=== PATIENT | female | born 1985 | race American Indian/Alaskan Native ===

== ENCOUNTER 2017-09-12 15:37 | Emergency (ER) | payer OTHER ==
[2017-09-12 15:50] VITALS: BP 114/71
--- NOTE | 2017-09-12 18:33 | Emergency Department Report ---
ED Headache HPI - General Chief Complaint: Headache Stated Complaint: HEADACHE/ABDOMINAL PAIN Time Seen by Provider: 09/12/17 18:01 - History of Present Illness Initial Comments: Patient is a 32-year-old female past history of migraines who is presenting with 2-3 days of a headache patient states this is mild but she does have slight sensitivity is mild nausea. Patient is new to [place] and does not have primary care physician at this time. Patient normally takes Imitrex but has not had her Imitrex and approximately 1 month. Patient has no signs or symptoms at this time Modifying Factors: improves with: exposure to light Associated Symptoms: denies: facial pain, fever/chills, loss of consciousness, nasal congestion, nasal drainage, numbness in legs/feet, seizures, sinus infection, stiff neck, vision changes, weakness Allergies/Adverse Reactions: Allergies No Known Allergies Allergy (Verified 09/12/17 15:44) Home Medications: Ambulatory Orders SUMAtriptan SUCCINATE [Imitrex] 4 mg SQ PRN #6 ml 09/12/17 ED Review of Systems ROS: Stated complaint: HEADACHE/ABDOMINAL PAIN Other details as noted in HPI Comment: All other systems reviewed and negative ED Past Medical Hx - Past Medical History Previous Medical History?: Yes Additional medical history: migraines - Surgical History Past Surgical History?: Yes Additional Surgical History: rotator cuff - Social History Smoking Status: Never Smoker Substance Use Type: None - Medications Home Medications: Home Medications Medication Instructions Recorded Confirmed Last Taken Type SUMAtriptan SUCCINATE [Imitrex] 4 mg SQ PRN #6 ml 09/12/17 Unknown Rx ED Physical Exam - General Limitations: No Limitations General appearance: alert, in no apparent distress - Head Head exam: Present: atraumatic, normocephalic - Eye Eye exam: Present: normal appearance - ENT ENT exam: Present: mucous membranes moist - Neck Neck exam: Present: normal inspection - Respiratory Respiratory exam: Present: normal lung sounds bilaterally. Absent: respiratory distress - Cardiovascular Cardiovascular Exam: Present: regular rate, normal rhythm. Absent: systolic murmur, diastolic murmur, rubs, gallop - GI/Abdominal GI/Abdominal exam: Present: soft, normal bowel sounds - Extremities Exam Extremities exam: Present: normal inspection - Back Exam Back exam: Present: normal inspection - Neurological Exam Neurological exam: Present: alert, oriented X3 - Psychiatric Psychiatric exam: Present: normal affect, normal mood - Skin Skin exam: Present: warm, dry, intact, normal color. Absent: rash ED Course Vital Signs 09/12/17 15:44 Temperature 98.4 F Pulse Rate 90 Respiratory 16 Rate Blood Pressure 114/71 O2 Sat by Pulse 93 Oximetry Critical care attestation.: If time is entered above; I have spent that time in minutes in the direct care of this critically ill patient, excluding procedure time. ED Disposition Clinical Impression: Chronic migraine Disposition: - TO HOME OR SELFCARE Is pt being admited?: No Does the pt Need Aspirin: No Condition: Stable Instructions: Migraine Headache (ED) Prescriptions: SUMAtriptan SUCCINATE [Imitrex] 4 mg SQ PRN #6 ml Referrals: LUIS MERCEDES MD [Staff Physician] - 3-5 Days
== END 2017-09-12 18:48 | disposition home or self-care (01) ==
LOC: ED 15:37
DX: G43.709 Chronic migraine without aura, not intractable, without status migrainosus (principal)
CPT/HCPCS: 99282